=== PATIENT | male | born 1970 | race Hispanic/Latino ===

== ENCOUNTER 2017-05-14 20:04 | Emergency (ER) | payer SELFPAY ==
[2017-05-14 20:50] VITALS: BMI 24.3
[2017-05-14 20:51] VITALS: BP 117/90; PULSE 85; RESP 24; TEMP 98.8; O2SAT 100
--- NOTE | 2017-05-14 21:34 | ED PDOC ---
Arrival/HPI - General Chief Complaint: Dental Pain Time Seen by Provider: 05/14/17 20:11 Historian: Patient - History of Present Illness Narrative History of Present Illness (Text): 05/14/17 21:33 47 y/o male, no significant pmh, multiple drug allergy, on the clindamycin 300mg po qid and closely following up with his dentist for s/p I&D abscess, here for the dental pain. Pt. stated that he just needs analgesic controlled, no numbness or tingling, no difficulty swallowing, no night sweat, no rash, no dizziness, no difficulty swallowing, no other medical or psychological complaints. Past Medical History - Provider Review Nursing Documentation Reviewed: Yes - Cardiac Hx Cardiac Disorders: No - Pulmonary Hx Asthma: Yes - Neurological Hx Neurological Disorder: No - HEENT Hx HEENT Disorder: No - Renal Hx Renal Disorder: No - Endocrine/Metabolic Hx Endocrine Disorders: No - Hematological/Oncological Hx Blood Disorders: No - Integumentary Hx Dermatological Disorder: No - Musculoskeletal/Rheumatological Hx Musculoskeletal Disorders: No - Gastrointestinal Hx Gastrointestinal Disorders: No - Genitourinary/Gynecological Hx Genitourinary Disorders: No - Psychiatric Hx Post Traumatic Stress Disorder: Yes Hx Substance Use: No - Anesthesia Hx Anesthesia: No Hx Anesthesia Reactions: No Hx Malignant Hyperthermia: No Family/Social History - Physician Review Nursing Documentation Reviewed: Yes Family/Social History: Unknown Family HX Smoking Status: Never Smoked Hx Alcohol Use: No Hx Substance Use: No Allergies/Home Meds Allergies/Adverse Reactions: Allergies ibuprofen [From Motrin] Allergy (Verified 05/14/17 20:47) RASH ketorolac [From Toradol] Allergy (Verified 05/14/17 20:47) RASH latex Allergy (Verified 05/14/17 20:47) RASH levofloxacin [From Levaquin] Allergy (Verified 05/14/17 20:47) RASH Penicillins Allergy (Verified 05/14/17 20:47) RASH povidone-iodine [From Betadine] Allergy (Verified 05/14/17 20:47) RASH soap [From Betadine] Allergy (Verified 05/14/17 20:47) RASH tramadol Allergy (Verified 05/14/17 20:47) RASH Home Medications: Home Meds Medication Instructions Recorded Confirmed No Known Home Med 05/14/17 05/14/17 Review of Systems - Review of Systems Constitutional: absent: Fatigue, Weight Change Eyes: absent: Vision Changes ENT: Other (dental pain). absent: Hearing Changes Respiratory: absent: SOB, Cough Cardiovascular: absent: Chest Pain Gastrointestinal: absent: Abdominal Pain, Nausea, Vomiting Skin: absent: Rash, Pruritis Neurological: absent: Headache, Dizziness Psychiatric: absent: Anxiety, Depression, Suicidal Ideation Physical Exam Vital Signs Reviewed: Yes Vital Signs Temp Pulse Resp BP Pulse Ox 05/14/17 20:49 98.8 F 85 24 117/90 100 Temperature: Afebrile Blood Pressure: Normal Pulse: Regular Respiratory Rate: Normal Appearance: Positive for: Well-Appearing, Non-Toxic, Comfortable Pain Distress: None Mental Status: Positive for: Alert and Oriented X 3 - Systems Exam Head: Present: Atraumatic, Normocephalic Pupils: Present: PERRL Extroacular Muscles: Present: EOMI Conjunctiva: Present: Normal Ears: Present: NORMAL TM, Normal Canal. No: Erythema Mouth: Present: Moist Mucous Membranes, Other (There is no gingivial abscess but there is multiple poor dental hygiene with mild dental caries, no facial cellulitis. ) Neck: Present: Normal Range of Motion, Trachea Midline. No: Meningeal Signs, MIDLINE TENDERNESS, Lymphadenopathy Respiratory/Chest: Present: Clear to Auscultation, Good Air Exchange. No: Respiratory Distress, Accessory Muscle Use Cardiovascular: Present: Regular Rate and Rhythm, Normal S1, S2. No: Murmurs Abdomen: Present: Normal Bowel Sounds. No: Tenderness, Distention, Peritoneal Signs Back: Present: Normal Inspection Upper Extremity: Present: Normal Inspection. No: Cyanosis, Edema Lower Extremity: Present: Normal Inspection. No: Edema Neurological: Present: GCS=15, Speech Normal, Motor Func Grossly Intact, Gait Normal, Memory Normal Skin: Present: Warm, Dry, Normal Color. No: Rashes Psychiatric: Present: Alert, Oriented x 3, Normal Insight, Normal Concentration Medical Decision Making ED Course and Treatment: 05/14/17 21:36 -[place] [place], no visible prescriptions received on this for controlled substance. -Pt. stated that he constantly gets the oral percocet for his chronic pain from his doctor as well including recently but there is no visible prescription noted online [place] [place]. -Will give single dose of percocet if the patient can provide ID proof of his name and date of . 05/14/17 21:40 -Pt. is on the cleocin 300mg po qid and stated that he has scheduled to see the dentist on 05/16/2017 -I offered pain medication to him but he declined, stated that he doesn't want any treatments anymore, wants to sign out against medical advise, refused to talk to me any further. Pt. also seen by Dr. Maher as well. AMA ER The patient refuses to stay in the Emergency Room (ER) to continue the care and wishes to leave the emergency department against my medical advice. Patient was told that staying in the ER is necessary and a full explanation of the reasons why was given, and understood by the patient with alert and oriented x4. The risk of leaving were explained in laymans term and including but not limited to worsening of the dental pain, facial infection, sepsis, pain, worsening of condition, permanent disability and from an undiagnosed or untreated condition. The patient accepts these risks, and is in my judgment is competent and capable of understanding the clinical situation and explanation of the risk of leaving. The patient is able to verbally repeated me back the above explained risks and benefits back to me, and verbally expressed understanding. Patient was given the opportunity to ask questions and change mind. The patient was instructed regarding the best care for the present symptoms, and to follow up as soon as possible with the primary care doctor including specialist or return to the emergency department at any time for continuing care. - PA / [employer] / Resident Statement MD/DO has reviewed & agrees with the documentation as recorded. Disposition/Present on Arrival - Present on Arrival Any Indicators Present on Arrival: No History of DVT/PE: No History of Uncontrolled Diabetes: No Urinary Catheter: No History of Decub. Ulcer: No History Surgical Site Infection Following: None - Disposition Have Diagnosis and Disposition been Completed?: Yes Diagnosis: Toothache, Non-compliant behavior Disposition: AGAINST MEDICAL ADVICE Disposition Time: 21:41 Condition: STABLE Discharge Instructions (ExitCare): Dental Caries (ED), Against Medical Advice ( ED), Toothache (ED) Additional Instructions: follow up with your doctor. return to er with worsening symptoms or concerns. Referrals: Alberto Esteban Jr., MD [Primary Care Provider] - Follow up with primary Forms: [email or web address] ([place])
== END 2017-05-14 21:53 | disposition left against medical advice (07) ==
LOC: ED 20:04
DX: K08.89 Other specified disorders of teeth and supporting structures (principal); Z91.19 Patient's noncompliance with other medical treatment and regimen